=== PATIENT | female | born 1945 | race Caucasian/White ===

== ENCOUNTER 2021-09-14 15:25 | Emergency (ER) | payer MEDICARE, OTHER ==
[~2021-09-14] VITALS: Ht 147.3 cm; Wt 83.9 kg
[2021-09-14 15:25] VITALS: BP 101/39
--- NOTE | 2021-09-14 15:45 | NUR ---
[facility] TO ER BED 11
[2021-09-14] MEDS ORDERED: NACL 0.9% 1,000 ML IV ONE (16:00)
[2021-09-14] MEDS ORDERED: NACL 0.9% 500 ML IV ONE (16:05)
--- NOTE | 2021-09-14 16:13 | NUR ---
RAD AT BEDSIDE
--- NOTE | 2021-09-14 16:48 | NUR ---
Blood sample and UA handed to CPT Zoila at ER bedside.
--- NOTE | 2021-09-14 17:01 | NUR ---
IV TO R AC INFILTRATED. D/C'D AND SECURED WITH 2X2 GAUZE; WARM COMPRESS APPLIED AND R ARM ELEVATED.
[2021-09-14 17:14] LABS: BASOPHILS # (AUTO) 0.1 K/uL (0.00-0.22); EOSINOPHILS # (AUTO) 0.5 K/uL (0-0.4); HEMOGLOBIN 7.8 g/dL (12.0-16.0); LYMPHOCYTES # (AUTO) 1.2 K/uL (2.5-16.5); MEAN CORPUSCULAR HEMOGLOBIN 23 pg (27-31); MONOCYTES # (AUTO) 1.4 K/uL (0.8-1.0)
[2021-09-14 17:16] LABS: APPEARANCE,URINE CLEAR (CLEAR); BILIRUBIN,URINE NEGATIVE (NEGATIVE); BLOOD, URINE TRACE-I (NEGATIVE); COLOR,URINE YELLOW (YELLOW); LEUKOCYTE ESTERASE ,URINE 3+ (NEGATIVE); NITRITE, URINE NEGATIVE (NEGATIVE); PH,URINE 6.5 (5.0-9.0); UGLUCOSE NEGATIVE (NEGATIVE)
[2021-09-14 17:19] LABS: BASOPHILS % (AUTO) 0.4 % (0.0-2.0); EOSINOPHILS % (AUTO) 3.4 % (0.0-4.0); HEMATOCRIT 25.1 % (36-48); LYMPHOCYTES % (AUTO) 8.6 % (20.5-51.1); MEAN CORPUSCULAR HGB CONC 31 g/dL (33-37); MEAN CORPUSCULAR VOLUME 75.2 fL (80-94); NEUTROPHILS % (AUTO) 77.6 % (42.2-75.2); PLATELET COUNT (AUTO) 399 K/uL (140-450); RED BLOOD CELL COUNT(AUTO) 3.33 MIL/uL (4.20-5.40); RED CELL DISTRIBUTION WIDTH 18.3 % (11.6-13.7); WHITE BLOOD COUNT (AUTO) 14.2 K/uL (4.8-10.8)
[2021-09-14 17:32] LABS: PROTHROMBIN TIME 10.3 secs (10.8-13.4)
[2021-09-14 17:33] LABS: ALBUMIN 1.7 g/dL (3.4-5.0); ANION GAP 5.7 (8-16); ASPARTATE AMINOTRANSFERASE 19 U/L (15-37); CARBON DIOXIDE 38.7 mmol/L (21-32); CHLORIDE 98 mmol/L (98-107); CREATININE 0.7 mg/dL (0.6-1.3); GLUCOSE 153 mg/dL (74-106); POTASSIUM 3.4 mmol/L (3.5-5.1); SODIUM SERUM 139 mmol/L (136-145); TOTAL BILIRUBIN 0.2 mg/dL (0.0-1.0); UREA NITROGEN, BLOOD 33 mg/dL (7-18)
[2021-09-14 17:47] LABS: WBC,URINE >25 (MANY) /HPF (0-5)
[2021-09-14] MEDS ORDERED: cefTRIAXone 1,000 MG in LIDOCAINE MPF 1% 2.1 ML IM ONE (18:45)
[2021-09-14] MEDS ORDERED: cefTRIAXone 1,000 MG VIAL ONE (19:02)
[2021-09-14] MEDS ORDERED: CEPH-588 PO (19:09)
--- NOTE | 2021-09-14 19:15 | NUR ---
VERBAL ORDER RECEIVED TO [facility] AND GIVE ROCEPHIN 1000MG IVPB ONCE.
--- NOTE | 2021-09-14 19:26 | NUR ---
Pt report given to Kamron rosales. Transfer of care at this time.
--- NOTE | 2021-09-14 20:42 | NUR ---
rt at bedside
--- NOTE | 2021-09-14 20:54 | NUR ---
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
--- NOTE | 2021-09-14 21:09 | NUR ---
[facility] TRAN[facility] AT BEDSIDE
[2021-09-14 21:15] VITALS: BP 99/48
--- NOTE | 2021-09-14 21:25 | NUR ---
PT TAKEN BY [facility] BACK TO [facility]
--- NOTE | 2021-09-14 21:32 | NUR ---
Patient discharged with v/s stable. Written and verbal after care instructions given and explained. Patient alert, oriented to baseline. Ambulance Transport with to [facility]. All questions addressed prior to discharge. ID band removed. Patient advised to follow up with PMD. Rx of keflex given. Caregiver educated during phone report on indication of medication including possible reaction and side effects. Opportunity to ask questions provided and answered. Pt transported via [facility]. VSS.
== END 2021-09-14 21:32 ==
LOC: MED 15:25
DX: N39.0 Urinary tract infection, site not specified (principal); D64.9 Anemia, unspecified; E11.9 Type 2 diabetes mellitus without complications; I10 Essential (primary) hypertension; E78.5 Hyperlipidemia, unspecified; E03.9 Hypothyroidism, unspecified; Z86.718 Personal history of other venous thrombosis and embolism
CPT/HCPCS: 36415; 71045; 80053; 81001; 83605; 85025; 85610; 85730; 86886; 86900; 86901; 87040; 87086; 96365; 96366; 99285; J0696; J7030; Q0092